=== PATIENT | male | born 2000 | race Two or more races ===

== ENCOUNTER 2020-02-23 09:34 | Emergency (ER) | payer MEDICAID, OTHER ==
[~2020-02-23] VITALS: Ht 172.7 cm; Wt 86.0 kg
[2020-02-23] MEDS ORDERED: ACETAMINOPHEN 325MG TABLET PO ONE (10:00)
[2020-02-23 12:48] VITALS: BP 147/96
== END 2020-02-23 12:55 | disposition home or self-care (01) ==
LOC: ER 09:34
DX: S93.402A Sprain of unspecified ligament of left ankle, initial encounter (principal); I10 Essential (primary) hypertension; Z90.49 Acquired absence of other specified parts of digestive tract; Y93.66 Activity, soccer; Y92.89 Other specified places as the place of occurrence of the external cause; Y99.8 Other external cause status
CPT/HCPCS: 93971; 99284

== ENCOUNTER 2021-10-18 13:54 | Emergency (ER) | payer OTHER ==
[~2021-10-18] VITALS: Ht 170.2 cm; Wt 82.0 kg
[2021-10-18 16:45] VITALS: BP 124/73
[2021-10-18] MEDS ORDERED: KETOROLAC 60MG/2ML VIAL IM ONE (16:45)
[2021-10-18] MEDS ORDERED: IBUP-2029 MT (17:39)
[2021-10-18] MEDS ORDERED: CYCL10TA21 MT (17:39)
== END 2021-10-18 17:48 | disposition home or self-care (01) ==
LOC: ER 13:54
DX: M25.512 Pain in left shoulder (principal); Z90.49 Acquired absence of other specified parts of digestive tract
CPT/HCPCS: 73030; 96372; 99283; J1885

== ENCOUNTER 2024-02-05 13:31 | Emergency (ER) | payer MEDICAID, OTHER ==
[~2024-02-05] VITALS: Ht 170.2 cm; Wt 82.0 kg
[~2024-02-05 13:31] MED LIST: CYCL10TA21 MT; IBUP-2029 MT
[2024-02-05 13:40] VITALS: O2SAT 100
[2024-02-05] MEDS: IBUPROFEN 600MG TABLET PO ONE (15:55)
[2024-02-05 15:57] VITALS: BP 118/70; PULSE 81; RESP 16; TEMP 36.94740; O2SAT 100
== END 2024-02-05 15:55 | disposition home or self-care (01) ==
LOC: ER 13:44
DX: N50.811 Right testicular pain (principal); Z90.49 Acquired absence of other specified parts of digestive tract
CPT/HCPCS: 76870; 93976; 99284

== ENCOUNTER 2024-03-04 11:09 | Emergency (ER) | payer MEDICAID, OTHER ==
[~2024-03-04] VITALS: Ht 170.2 cm; Wt 81.0 kg
[2024-03-04 11:18] VITALS: O2SAT 100
[2024-03-04 11:19] VITALS: BP 114/80; PULSE 96; RESP 18; TEMP 98.7; O2SAT 100
[2024-03-04] MEDS: KETOROLAC 30MG/ML VIAL IM ONE (12:36)
== END 2024-03-04 12:41 | disposition home or self-care (01) ==
LOC: ER 11:09
DX: S80.11XA Contusion of right lower leg, initial encounter (principal); S29.9XXA Unspecified injury of thorax, initial encounter; Z90.49 Acquired absence of other specified parts of digestive tract; X58.XXXA Exposure to other specified factors, initial encounter; Y93.55 Activity, bike riding; Y92.89 Other specified places as the place of occurrence of the external cause; Y99.8 Other external cause status
CPT/HCPCS: 99283; 71045; 96372; J1885